=== PATIENT | female | born 1990 ===

== ENCOUNTER 2019-07-22 11:11 | Emergency (ER) | payer SELFPAY ==
--- NOTE | 2019-07-22 11:23 | EDM.PDOC ---
ED HPI GENERAL MEDICAL PROBLEM - General Stated Complaint: BACK PAIN Time Seen by Provider: 07/22/19 11:14 Source of Information: Reports: Patient History Limitations: Reports: No Limitations - History of Present Illness INITIAL COMMENTS - FREE TEXT/NARRATIVE: 28-year-old female with history of factor V Leiden on Coumadin presents with atraumatic right lower back pain for 2 days. Pain is mild, constant, exacerbated by movement and palpation, nonradiating. She denies fever, chills, IVDA, diabetes, recent spine surgery, urinary or fecal incontinence. She has been taking Tylenol with no relief. ROS: A 10-point review of systems, other than pertinent positives and negatives as stated per HPI, is otherwise negative PHYSICAL EXAM General: AOx4, GCS = 15, No distress HEENT: dry mucous membrane Neck: supple, no meningismus, no Kernig or Brudzinski Cardiac: S1S2 RRR Respiratory: CTAB, no crackles or rales, no wheezing Abdomen: Soft, nontender, no rebound or guarding, nondistended, no pulsatile mass. Back: nontender to C/T/L spine midline. ttp right lumbar paraspinal with spasm. Musculoskeletal: NVI distally, no deformity Neuro: No focal deficits. MEDICAL DECISION MAKING: I reviewed the patients past medical records, lab and radiographic findings. I discussed the case with family members. My differential diagnosis included: low back strain. Patient's back pain is suggestive of musculoskeletal strain. There are no complaints of urinary or fecal incontinence, focal numbness or weakness. The patient has a normal gait in the ER. There is no evidence of fever, IV drug use, recent back surgery, or immunocompromised state. I do not suspect caude equine syndrome or cord compression which would warrant further imaging. - Related Data Home Meds: Home Meds Cyclobenzaprine [Flexeril] 10 mg PO BID #10 tab 07/22/19 [Rx] ED ROS GENERAL - Review of Systems Review Of Systems: See Below (See dictation) ED EXAM,LOWER BACK PAIN/INJURY - Physical Exam Exam: See Below (See dictation) Course - Orders/Labs/Meds Meds: Medications Discontinued Medications Generic Name Dose Route Start Last Admin Trade Name Carolyne PRN Reason Stop Dose Admin Orphenadrine Citrate 60 mg 07/22/19 11:24 Norflex IM 07/22/19 11:25 ONETIME ONE - Re-Assessments/Exams Free Text/Narrative Re-Assessment/Exam: 07/22/19 11:27 -after IM norflex, she improved clinically and is stable for discharge. I performed a repeat examination and the patient has not demonstrated any new abnormal findings. Patient exhibits normal vital signs and has exhibited a normal gait. I advised the patient to return to the ER for reevaluation if symptoms worsened, and to follow up with their PCP within 2-3 days. Departure - Departure Time of Disposition: 11:23 Disposition: Home, Self-Care 01 Condition: Good Clinical Impression: Low back strain - Discharge Information Prescriptions: Cyclobenzaprine [Flexeril] 10 mg PO BID #10 tab Instructions: Muscle Strain, [id number] Referrals: PCP,None [Primary Care Provider] - Additional Instructions: The following information is given to patients seen in the emergency department who are being discharged to home. This information is to outline your options for follow-up care. We provide all patients seen in our emergency department with a follow-up referral. The need for follow-up, as well as the timing and circumstances, are variable depending upon the specifics of your emergency department visit. If you don't have a primary care physician on staff, we will provide you with a referral. We always advise you to contact your personal physician following an emergency department visit to inform them of the circumstance of the visit and for follow-up with them and/or the need for any referrals to a consulting specialist. The emergency department will also refer you to a specialist when appropriate. This referral assures that you have the opportunity for follow-up care with a specialist. All of these measure are taken in an effort to provide you with optimal care, which includes your follow-up. Under all circumstances we always encourage you to contact your private physician who remains a resource for coordinating your care. When calling for follow-up care, please make the office aware that this follow-up is from your recent emergency room visit. If for any reason you are refused follow-up, please contact the [facility] Emergency Department at and asked to speak to the emergency department charge nurse. [facility] [address] [place] [id number] [address] Sepsis Event Note - Focused Exam Date Exam was Performed: 07/22/19 Time Exam was Performed: 11:29
== END 2019-07-22 12:25 | disposition home or self-care (01) ==
LOC: MW.ED 11:11
DX: S39.012A Strain of muscle, fascia and tendon of lower back, initial encounter (principal); X58.XXXA Exposure to other specified factors, initial encounter
CPT/HCPCS: 96372; 99283; J2360

== ENCOUNTER 2020-08-20 06:13 | Day surgery (SDC) | payer BC ==
[~2020-08-20 06:13] MED LIST: Sodium Chloride 0.9% 10 ML SDV IV PRN; Sodium Chloride 0.9% 10 ML Syringe FLUSH PRN; Sodium Chloride 0.9% 2.5 ML Syringe FLUSH PRN
--- NOTE | 2020-08-20 07:26 | PCM.PREANE ---
Preanesthetic Assessment - Anesthesia/Transfusion/Family Hx Anesthesia History: Prior Anesthesia Without Reaction Family History of Anesthesia Reaction: No Transfusion History: No Prior Transfusion(s) - Review of Systems General: No Symptoms Pulmonary: No Symptoms Cardiovascular: No Symptoms Gastrointestinal: No Symptoms Neurological: No Symptoms Other: Reports: None - Physical Assessment NPO Status Date: 08/20/20 NPO Status Time: 00:01 Height: 5 ft 5 in Weight: 280 lb ASA Class: 3 Mental Status: Alert & Oriented x3 Airway Class: Mallampati = 2 Dentition: Reports: Normal Dentition ROM/Head Extension: Full Lungs: Clear to Auscultation, Normal Respiratory Effort Cardiovascular: Regular Rate, Regular Rhythm - Lab Values: Laboratory Last Values WBC 7.22 K/uL (4.0-11.0) 08/20/20 06:24 RBC 4.54 M/uL (4.30-5.90) 08/20/20 06:24 Hgb 14.4 g/dL (12.0-16.0) 08/20/20 06:24 Hct 42.0 % (36.0-46.0) 08/20/20 06:24 MCV 92.5 fL (80.0-98.0) 08/20/20 06:24 MCH 31.7 pg (27.0-32.0) 08/20/20 06:24 MCHC 34.3 g/dL (31.0-37.0) 08/20/20 06:24 RDW Std Deviation 47.5 fl (28.0-62.0) 08/20/20 06:24 RDW Coeff of Linsey 14 % (11.0-15.0) 08/20/20 06:24 Plt Count 200 K/uL (150-400) 08/20/20 06:24 MPV 10.60 fL (7.40-12.00) 08/20/20 06:24 Nucleated RBC % 0.0 /100WBC 08/20/20 06:24 Nucleated RBCs # 0 K/uL 08/20/20 06:24 INR 1.12 08/20/20 06:24 HCG, Qual NEGATIVE (NEG) 08/20/20 06:24 SARS-CoV-2 RNA (ISRRA[place]) NEGATIVE (NEGATIVE) 08/20/20 06:05 - Allergies Allergies/Adverse Reactions: Allergies Allergy/AdvReac Type Severity Reaction Status Date / Time meperidine [From Demerol] Allergy "makes me Verified 08/20/20 07:08 go crazy" - Anesthesia Plan Pre-Op Medication Ordered: None - Acknowledgements Anesthesia Type Planned: General Anesthesia Pt an Appropriate Candidate for the Planned Anesthesia: Yes Alternatives and Risks of Anesthesia Discussed w Pt/Guardian: Yes Pt/Guardian Understands and Agrees with Anesthesia Plan: Yes Additional Comments: npo after mn known family hx Factor V Leiden PE 2010 on coumadin since then last dose Wednesday no cv problems morbid obesity tob none etoh occ par no questions PreAnesthesia Questionnaire HEENT History: Reports: Other (See Below) Other HEENT History: wears glasses Cardiovascular History: Reports: Blood Clots/VTE/DVT Other Cardiovascular History: DVT x4 Respiratory History: Reports: PE Other Respiratory History: PE in 2010 Gastrointestinal History: Reports: Cholelithiasis, Other (See Below) Other Gastrointestinal History: occasional heartburn Genitourinary History: Reports: UTI, Recurrent CERTIFIED MEDICAL TRANSCRIPTIONIST History: Reports: Endometriosis, Musculoskeletal History: Reports: Fibromyalgia Neurological History: Reports: None Psychiatric History: Reports: None Endocrine/Metabolic History: Reports: Obesity/BMI 30+ Hematologic History: Reports: Other (See Below) Other Hematologic History: factor V Immunologic History: Reports: None Oncologic (Cancer) History: Reports: None Dermatologic History: Reports: None - Infectious Disease History Infectious Disease History: Reports: Chicken Pox - Past Surgical History Head Surgeries/Procedures: Reports: None HEENT Surgical History: Reports: Adenoidectomy, Tonsillectomy Cardiovascular Surgical History: Reports: None Respiratory Surgical History: Reports: None GI Surgical History: Reports: Cholecystectomy Female Surgical History: Reports: Tubal Ligation, Other (See Below) Other Female Surgeries/Procedures: diagnostic laparoscopy Endocrine Surgical History: Reports: None Neurological Surgical History: Reports: None Musculoskeletal Surgical History: Reports: None Oncologic Surgical History: Reports: None Dermatological Surgical History: Reports: None - SUBSTANCE USE Tobacco Use Status *Q: Never Tobacco User - HOME MEDS Home Medications: Home Meds Warfarin [Coumadin] 12.5 mg PO BEDTIME 07/22/19 [History] - CURRENT (IN HOUSE) MEDS Current Meds: Current Medications Lactated Ringer's (Ringers, Lactated) 1,000 mls @ 500 mls/hr IV BOLUS SADAF Sodium Chloride (Sodium Chloride 0.9% 10 Ml Syringe) 10 ml FLUSH ASDIRECTED PRN PRN Reason: Keep Vein Open Sodium Chloride (Sodium Chloride 0.9% 2.5 Ml Syringe) 2.5 ml FLUSH ASDIRECTED PRN PRN Reason: Keep Vein Open Sodium Chloride (Sodium Chloride 0.9% 10 Ml Sdv) 10 ml IV ASDIRECTED PRN PRN Reason: IV Use
[2020-08-20] MEDS ORDERED: fentaNYL 250 MCG/5 ML SDV ONE ×2 (07:36→09:21)
[2020-08-20] MEDS ORDERED: Midazolam 1 MG/ML 2 ML SDV ONE (07:36)
[2020-08-20] MEDS ORDERED: Propofol 200 MG/20 ML SDV ONE (07:36)
[2020-08-20] MEDS ORDERED: Ondansetron 4 MG/2 ML SDV ONE ×2 (07:37→10:07)
[2020-08-20] MEDS ORDERED: Lidocaine 2% 5 ML SDV ONE (07:37)
[2020-08-20] MEDS ORDERED: Dexamethasone 4 MG/ML 5 ML MDV ONE (07:37)
[2020-08-20] MEDS ORDERED: Rocuronium Bromide 50 MG/5 ML Syringe ONE (07:37)
[2020-08-20] MEDS ORDERED: Bupivacaine 0.25% 10 ML SDV ONE (07:39)
[2020-08-20] MEDS ORDERED: Methylene Blue 50 MG/10 ML Ampule ONE (07:39)
[2020-08-20] MEDS ORDERED: Octyl 2-Cyanoacrylate 1 Tube ONE (07:39)
[2020-08-20] MEDS ORDERED: Lactated Ringers 1,000 ML IV SCH (08:00)
[2020-08-20] MEDS ORDERED: Sugammadex Sodium 200 MG/2 ML VIAL ONE (10:05)
[2020-08-20] MEDS ORDERED: Ketorolac 30 MG/ML SDV ONE (10:08)
[2020-08-20] MEDS ORDERED: HYDROmorphone 2 MG/ML Syringe IVPUSH PRN (10:48)
[2020-08-20] MEDS ORDERED: Promethazine 25 MG/ML SDV IM PRN (11:22)
[2020-08-20] MEDS ORDERED: Ketorolac 30 MG/ML SDV IVPUSH PRN (11:22)
[2020-08-20] MEDS ORDERED: Morphine 4 MG/ML Syringe IVPUSH PRN (11:22)
[2020-08-20] MEDS ORDERED: Acetaminophen/oxyCODONE 325-5 MG Tab PO PRN ×2 (11:22)
[2020-08-20] MEDS ORDERED: Ketorolac 30 MG/ML SDV IVPUSH ONE (11:22)
[2020-08-20] MEDS ORDERED: Ondansetron 4 MG/2 ML SDV IVPUSH PRN (11:22)
--- NOTE | 2020-08-20 11:30 | PCM.OPNOTE ---
- General Post-Op/Procedure Note Date of Surgery/Procedure: 08/20/20 Operative Procedure(s): Operative Laparoscopy. Peritoneal biospy. Ablation of endometriotic deposits Findings: Normal sized anteverted uterus SOme area of whitish appearing tiny lesion on serous of uterus Left ovarian fossa with endometriotic nodule - biopsy Very scant reddish endometriotic deposits noted in the right ovarian fossa Some scarring around the uterosacral ligament Pre Op Diagnosis: Endometrosis. Chronic pelvic pain Post-Op Diagnosis: same Primary Surgeon: Selene Nixon Secondary Surgeon: Ritu Turner Anesthesia Provider: Vazquez Nina Pathology: left peritoneal biopsy Fluid Replacement, Intraop: 1,500 EBL in mLs: 30 Complications: None Condition: Good Free Text/Narrative:: Intake & Output 08/19/20 08/20/20 08/20/20 22:59 06:59 14:59 Intake Total 1500 Output Total 50 Balance 1450
--- NOTE | 2020-08-20 12:01 | PCM.POSTAN ---
POST ANESTHESIA ASSESSMENT - MENTAL STATUS Mental Status: Alert (no anesthetic problems), Oriented - VITAL SIGNS Vital Signs: Last Vital Signs Temp 97.9 F 08/20/20 10:37 Pulse 93 08/20/20 11:08 Resp 12 08/20/20 11:08 BP 106/66 08/20/20 11:08 Pulse Ox 96 08/20/20 11:08 - RESPIRATORY Respiratory Status: Respiratory Rate WNL, Airway Patent, O2 Saturation Stable - CARDIOVASCULAR CV Status: Pulse Rate WNL, Blood Pressure Stable - GASTROINTESTINAL GI Status: No Symptoms - POST OP HYDRATION Hydration Status: Adequate & Stable
--- NOTE | 2020-08-20 12:02 | PCM48HPAN ---
Post Anesthesia Note - EVALUATION WITHIN 48HRS OF ANESTHETIC Vital Signs in Normal Range: Yes Patient Participated in Evaluation: Yes Respiratory Function Stable: Yes Airway Patent: Yes Cardiovascular Function Stable: Yes Hydration Status Stable: Yes Pain Control Satisfactory: Yes Nausea and Vomiting Control Satisfactory: Yes Mental Status Recovered: Yes Vital Signs: Last Vital Signs Temp 97.9 F 08/20/20 10:37 Pulse 93 08/20/20 11:08 Resp 12 08/20/20 11:08 BP 106/66 08/20/20 11:08 Pulse Ox 96 08/20/20 11:08
--- NOTE | 2020-08-21 07:51 | OR ---
SURGEON: SANDRA MADRID DATE OF PROCEDURE: 08/20/2020 PREOPERATIVE DIAGNOSIS: A 29-year-old para 2 with chronic pelvic pain secondary to endometriosis. MTHFR Factor V leiden def POSTOPERATIVE DIAGNOSIS: A 29-year-old para 2 with chronic pelvic pain secondary to endometriosis. MTHFR , Factor V leiden def PROCEDURE: Operative laparoscopy with biopsy of the endometrial lesion and ablation of the endometriosis deposits. Lysis of adhesion ANESTHESIA: General endotracheal tube. COMPLICATION: None. INTRAVENOUS FLUID: 1500. ESTIMATED BLOOD LOSS: 30 mL. NOTES AND FINDINGS: A normal-sized anteverted uterus. Laparoscopy showed uterus with some white fibrous patches around the uterus. There was very scant endometriotic deposits in the posterior cul-de-sac, around the ovarian fossa on the right and the left. There was about a small 5 mm endometriotic deposit in the left ovarian fossa. There was also lysis of adhesions done between of the colon on the left with the pelvic sidewall. BRIEF HISTORY ABOUT THE PATIENT: She is a 29-year-old, para 2, who was complaining of chronic pelvic pain. She had a history of laparoscopic diagnosed endometriosis at age 17. She was having worsening pain over the couple of years. She cannot be on hormone suppression because of history of pulmonary embolism. She has a factor V Leiden deficiency and also MTHFR. Prior to surgery, she was cleared by primary care doctor. She withheld warfarin 3 days before the procedure. INR before procedure was 1.15. The patient was explained the risks, benefits, alternatives, and she decided to proceed with the procedure. DESCRIPTION OF PROCEDURE: The patient was taken to the operating room where general anesthesia was performed without difficulty. She was prepared and draped in the dorsal lithotomy position with Braulio stirrups. The cervix was properly prepped, and the speculum was placed to expose the cervix. Anterior lips were grasped with the Allis clamp and was dilated to accommodate the manipulator. Attention was then placed to the abdomen. Marcaine was injected below the umbilicus around the umbilicus fold. Then about 2 mL of Marcaine was injected. Then, a 5mm incision was made. The fiberoptic trocar was then placed with the laparoscope, and there was difficulty in entry of the abdomen, and a Veress needle was also attempted with no confirmation of intraperitoneal placement. Hence, there a decision made to proceed with open laparoscopy, so about a 1-cm incision was made at the umbilical fold. With careful dissection, blunt and sharp, the fascia was grasped with a Az clamp, and the peritoneum was also grasped with the az , and the abdomen was entered. The Ghassan trocar was then placed in without difficulty and was secured with 2.0 Vicryl on both sides. The pneumoperitoneum was obtained to 15 mmHg. Two 5mm trocar placed at the right and left lower quadrant. The patient was placed in Trendelenburg position. The bowel was taken out of the operating field. There was colonic adhesion to the left pelvic sidewall, which was relieved by careful dissection with the laparoscopic scissors. Then, better visualization of the left pelvic sidewall was noted. Endometriotic deposit was noted on the left pelvic sidewall. A little incision was done on the pelvis and on the peritoneum, and there was hydrodistention beneath the deposit and the peritoneum was then removed. The endometriotic deposit was removed with the aid of the laparoscopic scissors. Hemostasis was noted. The endometriotic deposit was far away from the ureter and of the movement within ureter was noted. On the right pelvic sidewall, some endometriotic deposits were noted, which was then ablated with the rollerball. Hemostasis was noted. The pelvis was inspected. There was no bleeding that was noted. Then, the trocars were removed and pneumoperitoneum was emptied. The 12 mm port incision was then closed, the fascia was closed with 0 Vicryl on the UR-6 needle, and the skin was closed with 3-0 Monocryl. Both the right and left laparoscopic incision sites were also closed. The uterine manipulator was removed. The cervix was inspected, noted to be hemostatic. All instrument and pad counts were correct x2. The patient tolerated the procedure well and will follow up in clinic in 2 weeks. BOWEN MANNING /[id number] ANASTASIA
== END 2020-08-20 12:20 | disposition home or self-care (01) ==
LOC: MW.SDS 06:13
PROVIDERS: ATTEND Obstetrics & Gynecology
DX: N80.3 Endometriosis of pelvic peritoneum (principal); N73.6 Female pelvic peritoneal adhesions (postinfective); D68.2 Hereditary deficiency of other clotting factors; E72.12 Methylenetetrahydrofolate reductase deficiency; R32 Unspecified urinary incontinence; E66.01 Morbid (severe) obesity due to excess calories; Z68.42 Body mass index [BMI] 45.0-49.9, adult; Z01.812 Encounter for preprocedural laboratory examination; Z20.822 Contact with and (suspected) exposure to COVID-19; Z88.8 Allergy status to other drugs, medicaments and biological substances; Z79.01 Long term (current) use of anticoagulants
CPT/HCPCS: 36415; 58662; 84703; 85027; 85610; 86850; 86900; 86901; 87635; 88305; J1100; J2250; J2704; J3010; J3490; J7120; A9270-GY; J1885; J2405; U0002

== ENCOUNTER 2024-10-09 08:32 | Emergency (ER) | payer BC ==
[2024-10-09 08:58] LABS: BASOPHILS ABSOLUTE AUTO 0.02 K/uL (0.00-0.20); BASOPHILS PERCENT AUTO 0.3 % (0.0-1.0); EOSINOPHILS ABSOLUTE AUTO 0.13 K/uL (0.00-0.45); EOSINOPHILS PERCENT AUTO 2.1 % (0.0-6.0); IMMATURE GRAN ABSOLUTE AUTO 0.01 K/uL (0.00-0.05); IMMATURE GRAN PERCENT AUTO 0.2 % (0.0-0.4); LYMPHOCYTES ABSOLUTE AUTO 1.51 K/uL (1.00-4.80); LYMPHOCYTES PERCENT AUTO 24.9 % (24.0-44.0); MEAN PLATELET VOLUME 10.0 fL (9.4-12.3); MONOCYTES ABSOLUTE AUTO 0.46 K/uL (0.00-0.80); MONOCYTES PERCENT AUTO 7.6 % (0.0-8.0); NEUTROPHILS ABSOLUTE AUTO 3.94 K/uL (1.80-7.70); NEUTROPHILS PERCENT AUTO 64.9 % (41.0-71.0); NRBC ABSOLUTE 0.00 K/uL (0.00-0.02); NRBC PERCENT 0.0 /100WBC (0.0-0.2); PLATELET COUNT,PLT 191 K/uL (150-400); RED BLOOD CELL COUNT 4.62 M/uL (4.10-5.30); WHITE BLOOD CELL COUNT,WBC 6.07 K/uL (3.9-11.3)
[2024-10-09] MEDS: Iopamidol 755 MG/ML 500 ML Multipack Bottle IVPUSH STA (09:12)
[2024-10-09 09:18] LABS: A/G RATIO 1.1 (0.9-1.6); ALANINE AMINOTRANSFERASE,ALT 34 IU/L (14-63); ASPARTATE AMNIOTRANSFERASE,AST 19 IU/L (15-37); BILIRUBIN TOTAL 1.1 mg/dL (0.2-1.0); BLOOD UREA NITROGEN,BUN 15 mg/dL (7.0-18.0); CARBON DIOXIDE,CO2 25.3 mmol/L (21.0-32.0); CHLORIDE,CL 104 mmol/L (98-107); CREATININE 0.8 mg/dL (0.6-1.0); GLUCOSE RANDOM 98 mg/dL (74-106); POTASSIUM,K 4.0 mmol/L (3.5-5.1); PROTEIN TOTAL,TP 7.0 g/dL (6.4-8.2); SODIUM,NA 139 mmol/L (136-145)
[2024-10-09 09:22] LABS: ESTIMATED GFR 100 mL/min (>60)
== END 2024-10-09 10:52 | disposition home or self-care (01) ==
LOC: MW.ED 08:32
DX: R07.89 Other chest pain (principal); E66.9 Obesity, unspecified; Z75.3 Unavailability and inaccessibility of health-care facilities; Z88.8 Allergy status to other drugs, medicaments and biological substances; Z79.899 Other long term (current) drug therapy; Z90.49 Acquired absence of other specified parts of digestive tract
CPT/HCPCS: 36415; 71275; 80053; 84484; 85025; 85379; 93005; 99285; Q9967